=== PATIENT | male | born 1990 | race Caucasian/White ===

== ENCOUNTER 2022-12-08 12:38 | Outpatient (CLI) | payer BC, SELFPAY | END 2022-12-08 12:39 | disposition home or self-care (01) | PROVIDERS: PCP Nurse Practitioner Family; Visit Provider Nurse Practitioner Family | DX: R11.2 Nausea with vomiting, unspecified (principal); F10.11 Alcohol abuse, in remission | CPT/HCPCS: 80053; 81015; 82150; 82607; 83690; 85025 ==

== ENCOUNTER 2024-07-15 07:03 | Outpatient (CLI) | payer BC, SELFPAY | END 2024-07-15 07:04 | disposition home or self-care (01) | PROVIDERS: PCP Nurse Practitioner Family; Visit Provider Family Medicine | DX: M54.16 Radiculopathy, lumbar region (principal); M51.369 Other intervertebral disc degeneration, lumbar region without mention of lumbar back pain or lower extremity pain | CPT/HCPCS: 62323; J0702; Q9966 ==